=== PATIENT | female | born 1960 | race Caucasian/White ===

== ENCOUNTER → 2017-01-13 | Outpatient (CLI) | payer MEDICAID ==
[~2017-01-13] MED LIST: ALBU6.7H INH; CYCL-259 PO; ERGO500017 PO; GABA-826 PO; HYDR25TA6 PO; IBUP200T48 PO; LEVO175T5 PO; LEVO50TA5 PO; LISI-170 PO; RANI300C PO; ROSU20TA PO
== END | disposition home or self-care (01) ==
LOC: CFH 10:13
PROVIDERS: ATTEND Internal Medicine Cardiovascular Disease
DX: I07.1 Rheumatic tricuspid insufficiency (principal); I10 Essential (primary) hypertension
CPT/HCPCS: 93306

== ENCOUNTER 2018-09-13 07:17 | Outpatient (CLI) | payer MEDICAID ==
[~2018-09-13 07:17] MED LIST changes: -IBUP200T48 PO; +IBUP200T49 PO; -ROSU20TA PO; +ROSU20TA2 PO
== END 2018-09-13 23:59 | disposition home or self-care (01) ==
LOC: CVU 07:17
PROVIDERS: ATTEND Internal Medicine Cardiovascular Disease
DX: I08.1 Rheumatic disorders of both mitral and tricuspid valves (principal)
CPT/HCPCS: 93306

== ENCOUNTER 2019-03-13 16:05 | Emergency (ER) | payer MEDICAID ==
[~2019-03-13] VITALS: Ht 162.6 cm; Wt 107.3 kg
[~2019-03-13 16:05] MED LIST changes: -ALBU6.7H INH; +ALBU6.7H8 INH
[2019-03-13] MEDS ORDERED: IBUP-1223 PO (16:37)
--- NOTE | 2019-03-13 16:38 | NUR ---
Pt resting on gurney connected to NIBP cuff, continous pulse ox monitor, and diagnostic cardiac sonographer. Pt c/o 3 days of intermittent chest pain that is described as "sharp" with intermittent radiation to left arm. Pt denies SOB, N/V/D, DIAPHORESIS, OR SYNCOPE. Lab at bedside. Call light within reach. Bedrail up x 1.
[2019-03-13] MEDS ORDERED: ASPIRIN 81 MG TABLET CHEW ONE (16:41)
[2019-03-13 16:54] LABS: BASOPHILS # (AUTO) 0.06 x10^3/uL (0-0.1); BASOPHILS % (AUTO) 1 % (0-1); EOSINOPHILS # (AUTO) 0.25 x10^3/uL (0-0.4); EOSINOPHILS % (AUTO) 3 % (1-7); LYMPHOCYTES # (AUTO) 2.07 x10^3/uL (1-3.4); LYMPHOCYTES % (AUTO) 27 % (22-44); MD NO; MEAN CORPUSCULAR HEMOGLOBIN 28.1 pg (27.0-34.8); MEAN CORPUSCULAR HGB CONC 32.6 g/dL (32.4-35.8); MEAN CORPUSCULAR VOLUME 86.1 fL (80-100); MEAN PLATELET VOLUME 7.6 fL (7.4-10.4); MONOCYTES # (AUTO) 0.64 x10^3/uL (0.2-0.8); MONOCYTES % (AUTO) 8 % (2-9); NEUTROPHILS # (AUTO) 4.63 x10^3/uL (1.8-6.8); NEUTROPHILS % (AUTO) 61 % (42-75); PLATELET COUNT 344 x10^3/uL (130-400); RED BLOOD COUNT 4.25 x10^6/uL (3.82-5.3); RED CELL DISTRIBUTION WIDTH 14.4 % (9.6-15.2)
[2019-03-13 17:00] LABS: ALBUMIN 3.1 g/dL (3.4-5.0); ANION GAP 6 mmol/L (5-15); CALCIUM 7.9 mg/dL (8.5-10.1); CHLORIDE 110 mmol/L (98-107); CREATININE 0.89 mg/dL (0.55-1.02)
[2019-03-13] MEDS ORDERED: ASPIRIN 81 MG TABLET CHEW PO ONE (17:00)
[2019-03-13 17:03] LABS: TROPONIN I < 0.015 ng/mL (0.000-0.045)
[2019-03-13] MEDS ORDERED: ENALAPRILAT 1.25 MG/ML, 1ML ONE (17:24)
[2019-03-13] MEDS ORDERED: LISINOPRIL 20 MG TABLET ONE (17:27)
[2019-03-13] MEDS ORDERED: ENALAPRILAT 1.25 MG/ML, 2ML IV ONE (17:30)
[2019-03-13] MEDS ORDERED: LISINOPRIL 20 MG TABLET PO ONE (17:30)
--- NOTE | 2019-03-13 18:46 | NUR ---
Pt states, "I don't want to wait anymore, I want to go home." EDMD aware. Patient given discharge instructions and they have confirmed that they understand the instructions. Patient ambulatory with steady gait. Pt left with d/c paperwork and all personal belongings.
[2019-03-13 18:47] VITALS: BP 165/123
== END 2019-03-13 18:49 | disposition home or self-care (01) ==
LOC: ED 16:58
DX: R07.89 Other chest pain (principal); I10 Essential (primary) hypertension; E03.9 Hypothyroidism, unspecified; K21.9 Gastro-esophageal reflux disease without esophagitis; I25.2 Old myocardial infarction; E78.00 Pure hypercholesterolemia, unspecified; I25.10 Atherosclerotic heart disease of native coronary artery without angina pectoris
CPT/HCPCS: 36415; 71045; 80048; 82040; 84484; 85025; 93005; 99284

== ENCOUNTER 2019-03-22 16:37 | Emergency (ER) | payer MEDICAID, OTHER ==
[~2019-03-22] VITALS: Ht 162.6 cm; Wt 106.7 kg
[~2019-03-22 16:37] MED LIST changes: +IBUP-1223 PO
--- NOTE | 2019-03-22 16:45 | NUR ---
EQUIPMENT INSTALLATION PROFESSIONAL: EKG COMPLETED IN TRIAGE
--- NOTE | 2019-03-22 16:55 | NUR ---
FROM LOBBY TO ROOM
[2019-03-22] MEDS ORDERED: KETOROLAC 30 MG/1 ML IM ONE (17:00)
--- NOTE | 2019-03-22 17:04 | NUR ---
PT TO XRAY.
[2019-03-22 17:32] VITALS: BP 164/92
[2019-03-22] MEDS ORDERED: KETOROLAC 30 MG/1 ML ONE (17:32)
--- NOTE | 2019-03-22 17:36 | NUR ---
PT MEDICATED PER EMAR. VS UPDATED. RESTING ON GURNEY W/ FAMILY AT BEDSIDE. CALL LIGHT IN REACH. DENIES FURTHER NEEDS AT THIS TIME.
[2019-03-22 17:46] LABS: TROPONIN I < 0.015 ng/mL (0.000-0.045)
--- NOTE | 2019-03-22 17:53 | NUR ---
ALL TESTS RESULTED. PT UP FOR RECHECK AT THIS TIME.
== END 2019-03-22 18:27 | disposition home or self-care (01) ==
LOC: ED 18:16
DX: S29.011A Strain of muscle and tendon of front wall of thorax, initial encounter (principal); I10 Essential (primary) hypertension; I25.10 Atherosclerotic heart disease of native coronary artery without angina pectoris; I25.2 Old myocardial infarction; E78.00 Pure hypercholesterolemia, unspecified; E03.9 Hypothyroidism, unspecified; K21.9 Gastro-esophageal reflux disease without esophagitis; V49.49XA Driver injured in collision with other motor vehicles in traffic accident, initial encounter; Y93.89 Activity, other specified; Y92.89 Other specified places as the place of occurrence of the external cause; Y99.8 Other external cause status
CPT/HCPCS: 36415; 71046; 84484; 93005; 96372; 99284; J1885